=== PATIENT | male | born 1990 | race Caucasian/White ===

== ENCOUNTER 2018-08-13 23:15 | Inpatient (IN) | payer OTHER ==
[2018-08-13 23:45] VITALS: BMI 26.4
--- NOTE | 2018-08-14 01:23 | HP ---
COWS - Scale Resting Pulse: 0= [place] 80 or Below Sweatin=Flushed/Facial Moisture Restless Observation: 1= Difficult to Sit Still Pupil Size: 1= Pupils >than Normal Bone or Joint Aches: 4=Acute Joint/Muscle Pain Runny Nose/ Eye Tearin= Runny Nose/Eyes GI Upset > 30mins: 3= Vomiting/Diarrhea (vomiting 5, diarrhea x 1) Tremor Observation: 1= Tremor [place], Not Seen Yawning Observation: 0= None Anxiety or Irritability: 2=Irritable/Anxious Goose Flesh Skin: 0=Smooth Skin COWS Score: 16 CIWA Score - Admission Criteria OASAS Guidelines: Admission for Medically Managed Detox: Requires at least one of the followin. CIWA greater than 12 2. Seizures within the past 24 hours 3. Delirium tremens within the past 24 hours 4. Hallucinations within the past 24 hours 5. Acute intervention needed for co occurring medical disorder 6. Acute intervention needed for co occurring psychiatric disorder 7. Severe withdrawal that cannot be handled at a lower level of care (continued vomiting, continued diarrhea, abnormal vital signs) requiring intravenous medication and/or fluids 8. Admission [facility] Chief Complaint: Heroin withdrawal symptoms Allergies/Adverse Reactions: Allergies Allergy/AdvReac Type Severity Reaction Status Date / Time No Known Allergies Allergy Verified 08/13/18 23:38 History of Present Illness: 28 years old male with 2 years of heroin dependence is seeking admission. Patient reports last detox at [facility] and reports insignificant period of sobriety. He has past medical history of depression and denies suicidal ideation at this time. he states that he felt suicidal and went to [facility] where he was treated, observed for more that 12 hours, cleared and was picked up by Mr. Marino to detox here. Exam Limitations: No Limitations - Ebola screening Have you traveled outside of the country in the last 21 days: No Have you had contact with anyone from an Ebola affected area: No Have you been sick,other than usual withdrawal symptoms: No Do you have a fever: No - Review of Systems Constitutional: Chills EENT: reports: Nose Congestion Respiratory: reports: No Symptoms reported Cardiac: reports: No Symptoms Reported GI: reports: Poor Fluid Intake, Vomiting, Abdominal cramping : reports: No Symptoms Reported Musculoskeletal: reports: Back Pain Integumentary: reports: Flushing Neuro: reports: Headache, Tremors Endocrine: reports: No Symptoms Reported Hematology: reports: No Symptoms Reported Psychiatric: reports: Depressed Other Systems: Reviewed and Negative Patient History - Patient Medical History Hx Anemia: No Hx Asthma: No Hx Chronic Obstructive Pulmonary Disease (COPD): No Hx Cancer: No Hx Cardiac Disorders: No Hx Congestive Heart Failure: No Hx Hypertension: No Hx Hypercholesterolemia: No Hx Pacemaker: No HX Cerebrovascular Accident: No Hx Seizures: No Hx Dementia: No Hx Diabetes: No Hx Gastrointestinal Disorders: No Hx Liver Disease: No Hx Genitourinary Disorders: No Hx Sexually Transmitted Disorders: No Hx Renal Disease (ESRD): No Hx Thyroid Disease: No Hx Human Immunodeficiency Virus (HIV): No (negative 2019) Hx Hepatitis C: No Hx Depression: Yes (Not on medication) Hx Suicide Attempt: No (Reports suicide attempt. treated at [facility] , Observed ) - Patient Surgical History Past Surgical History: No - PPD History Previous Implant?: Yes Documented Results: Negative w/o proof Implanted On Prior [facility] Admission?: No PPD to be Administered?: Yes - Reproductive History Patient is a Female of Child Bearing Age (11 -55 yrs old): No (Male) - Smoking Cessation Smoking history: Current every day smoker Have you smoked in the past 12 months: Yes Aproximately how many cigarettes per day: 2 Hx Chewing Tobacco Use: No Initiated information on smoking cessation: Yes 'Breaking Loose' booklet given: 08/14/18 - Substance & Tx. History Hx Alcohol Use: No Hx Substance Use: Yes Substance Use Type: Heroin, Opiates Hx Substance Use Treatment: Yes (Amandeep Haywood) - Substances abused Cocaine Substance route: Injection Frequency: Daily Amount used: 1 GRAM Age of first use: 11 Date of last use: 08/13/18 Heroin Substance route: Injection Frequency: Daily Amount used: 1 BUNDLE Age of first use: 26 Date of last use: 08/13/18 Family Disease History - Family Disease History Family History: Denies Admission Physical Exam BHS - Vital Signs Vital Signs: Vital Signs - 24 hr 08/13/18 23:36 Temperature 99.3 F Pulse Rate 69 Respiratory 18 Rate Blood Pressure 101/56 L - Physical General Appearance: Yes: Moderate Distress, Tremorous, Irritable, Anxious HEENTM: Yes: Nasal Congestion Respiratory: Yes: Normal Breath Sounds, No Accessory Muscle Use Neck: Yes: Supple Breast: Yes: Breast Exam Deferred Cardiology: Yes: Regular Rhythm, Regular Rate Abdominal: Yes: Normal Bowel Sounds, Soft Genitourinary: Yes: Within Normal Limits Back: Yes: Normal Inspection Musculoskeletal: Yes: Within Normal Limits Extremities: Yes: Tremors Neurological: Yes: Alert, Normal Mood/Affect Integumentary: Yes: Warm Lymphatic: Yes: Within Normal Limits - Diagnostic (1) Opioid dependence with withdrawal Current Visit: Yes Status: Acute (2) Depression Current Visit: Yes Status: Chronic Qualifiers: Depression Type: unspecified Qualified Code(s): F32.9 - Major depressive disorder, single episode, unspecified (3) Nicotine dependence Current Visit: Yes Status: Chronic Qualifiers: Nicotine product type: cigarettes Substance use status: uncomplicated Qualified Code(s): F17.210 - Nicotine dependence, cigarettes, uncomplicated Cleared for Admission S - Detox or Rehab [facility] Level of Care: Medically Managed Detox Regimen/Protocol: Methadone Breathalyzer - Breathalyzer Breathalyzer: 0 Urine Drug Screen - Test Device Lot number: [id number] Expiration date: 03/20/20 - Control Is test valid?: Yes - Results Drug screen NEGATIVE: No Urine drug screen results: FRITZ-Cocaine, FEN-Fentanyl, MOP-Opiates Inpatient Rehab Admission - Rehab Decision to Admit Inpatient rehab admission?: No
[2018-08-14] MEDS ORDERED: MAGNESIUM HYDROX 2400MG/30ML ORAL SUSPENSION 30 ML CUP PO PRN (01:42)
[2018-08-14] MEDS ORDERED: MELATONIN 5 MG TABLETS PO PRN (01:42)
[2018-08-14] MEDS ORDERED: IBUPROFEN 400 MG TABLET (FP) PO PRN (01:42)
[2018-08-14] MEDS ORDERED: MENTHOL/PHENOL 1 EACH UD MM PRN (01:42)
[2018-08-14] MEDS ORDERED: MAGNESIUM CITRATE 300 ML BOTTLE PO PRN (01:42)
[2018-08-14] MEDS ORDERED: MAG HYDROX/AL HYDROX/SIMETH 30 ML UNIT-DOSE CUP PO PRN (01:42)
[2018-08-14] MEDS ORDERED: METHOCARBAMOL 500 MG TABLET PO PRN (01:42)
[2018-08-14] MEDS ORDERED: ACETAMINOPHEN 325 MG TABLET (FP) PO PRN ×2 (01:42)
[2018-08-14] MEDS ORDERED: BISMUTH SUBSALICYLATE 524 MG/30 ML UD PO PRN (01:42)
[2018-08-14] MEDS ORDERED: METHADONE HCL 10 MG TABLET PO ONE (05:00)
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
[2018-08-14] MEDS: PRENATAL VITAMINS W/ FOLIC ACID TABLET (FP) PO SCH (10:15)
--- NOTE | 2018-08-14 11:04 | PN ---
BHS COWS - Scale Resting Pulse: 0= [place] 80 or Below Sweatin=Flushed/Facial Moisture Restless Observation: 1= Difficult to Sit Still Pupil Size: 0= Normal to Room Light Bone or Joint Aches: 2= Severe Diffuse Aches Runny Nose/ Eye Tearin= Runny Nose/Eyes GI Upset > 30mins: 1= Stomach Cramp Tremor Observation of Outstretched Hands: 2= Slight Tremor Visible Yawning Observation: 2= >3x During Session Anxiety or Irritability: 2=Irritable/Anxious Goose Flesh Skin: 3=Piloerection COWS Score: 17 BHS Progress Note (SOAP) Subjective: chills sweats shakes interrupted sleep body aches irritable agitation Objective: 08/14/18 11:03 Vital Signs Temperature 98.0 F 08/14/18 09:15 Pulse Rate 56 L 08/14/18 09:15 Respiratory Rate 18 08/14/18 09:15 Blood Pressure 103/66 08/14/18 09:15 O2 Sat by Pulse Oximetry (%) labs pending [id number] ambulating no acute distress Assessment: 08/14/18 11:03 withdrawal sx Plan: continue detox increase fluids labs pending
--- NOTE | 2018-08-14 11:30 | EKG ---
Test Reason : Blood Pressure : / mmHG Vent. Rate : 058 BPM Atrial Rate : 058 BPM P-R Int : 132 ms QRS Dur : 092 ms QT Int : 506 ms P-R-T Axes : 000 072 021 degrees QTc Int : 496 ms ECTOPIC ATRIAL RHYTHM PROLONGED QT NONSPECIFIC T WAVE ABNORMALITY ABNORMAL ECG NO PREVIOUS ECGS AVAILABLE Confirmed by JESSICA SIMS MD ([id number]) on 08/14/2018 11:30:08 AM Referred By: Confirmed By:JESSICA SIMS MD
[2018-08-14] MEDS: THIAMINE HCL 100 MG TABLET (FP) PO SCH (22:45)
[2018-08-14] MEDS: hydrOXYzine PAMOATE 25 MG CAPSULE (FP) PO PRN (22:46)
[2018-08-14] MEDS ORDERED: METHADONE HCL 10 MG TABLET (FOR DETOX USE ONLY) PO ONE (23:00)
[2018-08-15] MEDS ORDERED: METHADONE HCL 10 MG TABLET (FOR DETOX USE ONLY) PO ONE (10:00)
[2018-08-15 10:32] LABS: HEMATOCRIT 43.7 % (35.4-49); HEMOGLOBIN 14.7 GM/dL (11.7-16.9); MCH 28.7 pg (25.7-33.7); MCHC 33.7 g/dl (32.0-35.9); MEAN CELL VOLUME 85.2 fl (80-96); PLATELET COUNT 317 K/MM3 (134-434); RBC 5.13 M/mm3 (4.00-5.60); RDW 14.4 % (11.9-15.9); WHITE BLOOD COUNT 5.3 K/mm3 (4.0-10.0)
[2018-08-15] MEDS: PRENATAL VITAMINS W/ FOLIC ACID TABLET (FP) PO SCH (10:58)
[2018-08-15] MEDS: hydrOXYzine PAMOATE 25 MG CAPSULE (FP) PO PRN (10:58)
[2018-08-15] MEDS: diazePAM 5 MG TABLET PO PRN (10:58)
[2018-08-15 11:02] LABS: ALBUMIN 3.7 g/dl (3.4-5.0); ALK PHOS 89 U/L (45-117); ANION GAP 8 MMOL/L (8-16); BILIRUBIN,TOTAL 1.4 mg/dL (0.2-1); BLOOD UREA NITROGEN 12 mg/dL (7-18); CALCIUM 9.3 mg/dL (8.5-10.1); CHLORIDE 102 mmol/L (98-107); CO2 28 mmol/L (21-32); CREATININE 0.9 mg/dL (0.55-1.3); GLUCOSE,RANDOM 91 mg/dL (74-106); POTASSIUM 4.2 mmol/L (3.5-5.1); SGOT/AST 44 U/L (15-37); SGPT/ALT 105 U/L (13-61); SODIUM 138 mmol/L (136-145); TOT PROT 7.6 g/dl (6.4-8.2)
[2018-08-15 12:14] LABS: RPR REACTIVE 1:4 (NONREACTIVE)
--- NOTE | 2018-08-15 13:22 | PN ---
S COWS - Scale Resting Pulse: 1= [place] 81-100 Sweatin=Flushed/Facial Moisture Restless Observation: 1= Difficult to Sit Still Pupil Size: 0= Normal to Room Light Bone or Joint Aches: 2= Severe Diffuse Aches Runny Nose/ Eye Tearin= Nasal Congestion GI Upset > 30mins: 0= None Tremor Observation of Outstretched Hands: 2= Slight Tremor Visible Yawning Observation: 2= >3x During Session Anxiety or Irritability: 2=Irritable/Anxious Goose Flesh Skin: 3=Piloerection COWS Score: 16 BHS Progress Note (SOAP) Subjective: irritable agitation sweats shakes interrupted sleep Objective: 08/15/18 13:21 Vital Signs Temperature 98.2 F 08/15/18 09:45 Pulse Rate 56 L 08/15/18 09:45 Respiratory Rate 16 08/15/18 09:45 Blood Pressure 113/57 L 08/15/18 09:45 O2 Sat by Pulse Oximetry (%) Laboratory Tests 08/15/18 08/15/18 08/15/18 05:30 05:30 05:30 WBC 5.3 RBC 5.13 Hgb 14.7 Hct 43.7 MCV 85.2 MCH 28.7 MCHC 33.7 RDW 14.4 Plt Count 317 MPV 8.0 Sodium 138 Potassium 4.2 Chloride 102 Carbon Dioxide 28 Anion Gap 8 BUN 12 Creatinine 0.9 Creat Clearance w eGFR 99.77 Random Glucose 91 Calcium 9.3 Total Bilirubin 1.4 H AST 44 H ALT 105 H Alkaline Phosphatase 89 Total Protein 7.6 Albumin 3.7 RPR Titer Reactive 1:4 H labs noted pt was made aware of reactive RPR 1:4 pt states he was treated for syphilis and received 3 treatments Assessment: 08/15/18 13:22 withdrawal sx Plan: continue detox increase fluids
[2018-08-15 14:38] LABS: TREPONEMA ANTIBODY REACTIVE (NONREACTIVE)
[2018-08-15] MEDS: THIAMINE HCL 100 MG TABLET (FP) PO SCH (23:57)
[2018-08-16] MEDS ORDERED: METHADONE HCL 10 MG TABLET (FOR DETOX USE ONLY) PO ONE (10:00)
--- NOTE | 2018-08-16 11:31 | PN ---
BHS COWS - Scale Resting Pulse: 0= [place] 80 or Below Sweatin=Flushed/Facial Moisture Restless Observation: 1= Difficult to Sit Still Pupil Size: 0= Normal to Room Light Bone or Joint Aches: 1= Mild Discomfort Runny Nose/ Eye Tearin= None GI Upset > 30mins: 0= None Tremor Observation of Outstretched Hands: 0= None Yawning Observation: 1= 1-2x During Session Anxiety or Irritability: 1=Feels Anxious/Irritable Goose Flesh Skin: 0=Smooth Skin COWS Score: 6 BHS Progress Note (SOAP) Subjective: patient c/o sleep disturbance, chills, anxiety Objective: 08/16/18 11:31 Laboratory Tests 08/15/18 08/15/18 08/15/18 05:30 05:30 05:30 WBC 5.3 RBC 5.13 Hgb 14.7 Hct 43.7 MCV 85.2 MCH 28.7 MCHC 33.7 RDW 14.4 Plt Count 317 MPV 8.0 Sodium 138 Potassium 4.2 Chloride 102 Carbon Dioxide 28 Anion Gap 8 BUN 12 Creatinine 0.9 Creat Clearance w eGFR 99.77 Random Glucose 91 Calcium 9.3 Total Bilirubin 1.4 H AST 44 H ALT 105 H Alkaline Phosphatase 89 Total Protein 7.6 Albumin 3.7 RPR Titer Reactive 1:4 H T.pallidum Ab (MHA) Reactive Vital Signs Temperature 97.5 F L 08/16/18 09:36 Pulse Rate 66 08/16/18 09:36 Respiratory Rate 18 08/16/18 09:36 Blood Pressure 100/59 L 08/16/18 09:36 O2 Sat by Pulse Oximetry (%) pe: alert and oriented x 3 skin warm, +flushing ext full rom, amb ad neyda anxious Assessment: 08/16/18 11:33 withdrawal sx Plan: continue detox encourage fluids monitor
[2018-08-16] MEDS: diazePAM 5 MG TABLET PO PRN (12:01)
[2018-08-16] MEDS: PRENATAL VITAMINS W/ FOLIC ACID TABLET (FP) PO SCH (12:02)
[2018-08-16] MEDS: hydrOXYzine PAMOATE 25 MG CAPSULE (FP) PO PRN (12:02)
[2018-08-16] MEDS: THIAMINE HCL 100 MG TABLET (FP) PO SCH (23:58)
--- NOTE | 2018-08-17 07:24 | EKG ---
Test Reason : Blood Pressure : / mmHG Vent. Rate : 060 BPM Atrial Rate : 060 BPM P-R Int : 138 ms QRS Dur : 086 ms QT Int : 462 ms P-R-T Axes : 040 075 023 degrees QTc Int : 462 ms NORMAL SINUS RHYTHM NORMAL ECG WHEN COMPARED WITH ECG OF 14-AUG-2018 00:53, NONSPECIFIC T WAVE ABNORMALITY NO LONGER EVIDENT IN LATERAL LEADS Confirmed by ROHAN RODRIGUEZ MD ([id number]) on 08/15/2018 3:22:42 PM Also confirmed by ROHAN RODRIGUEZ MD ([id number]), video editor MASHA KC ([id number]) on 08/17/2018 7:24:40 AM Referred By: Confirmed By:ROHAN RODRIGUEZ MD
[2018-08-17] MEDS ORDERED: METHADONE HCL 10 MG TABLET (FOR DETOX USE ONLY) PO ONE (10:00)
[2018-08-17 10:14] LABS: ALBUMIN 3.5 g/dl (3.4-5.0); BILIRUBIN,DIRECT 0.2 mg/dL (0.0-0.2); TOT PROT 7.5 g/dl (6.4-8.2)
[2018-08-17] MEDS: PRENATAL VITAMINS W/ FOLIC ACID TABLET (FP) PO SCH (10:22)
[2018-08-17] MEDS: diazePAM 5 MG TABLET PO PRN (10:25)
--- NOTE | 2018-08-17 16:50 | PN ---
S COWS - Scale Resting Pulse: 0= [place] 80 or Below Sweatin= No chills or Flushing Restless Observation: 0= Sits Still Pupil Size: 0= Normal to Room Light Bone or Joint Aches: 1= Mild Discomfort Runny Nose/ Eye Tearin= Runny Nose/Eyes GI Upset > 30mins: 2= Nausea/Diarrhea Tremor Observation of Outstretched Hands: 2= Slight Tremor Visible Yawning Observation: 2= >3x During Session Anxiety or Irritability: 2=Irritable/Anxious Goose Flesh Skin: 0=Smooth Skin COWS Score: 11 S Progress Note (SOAP) Subjective: Tremors, Watery Eyes, Constipation, Nausea. Objective: PATIENT A & O X 3. IN NO ACUTE DISTRESS. 08/17/18 16:45 Vital Signs Temperature 98.6 F 08/17/18 13:27 Pulse Rate 77 08/17/18 13:27 Respiratory Rate 18 08/17/18 13:27 Blood Pressure 123/74 08/17/18 13:27 O2 Sat by Pulse Oximetry (%) Laboratory Tests 08/15/18 08/15/18 08/15/18 05:30 05:30 05:30 WBC 5.3 RBC 5.13 Hgb 14.7 Hct 43.7 MCV 85.2 MCH 28.7 MCHC 33.7 RDW 14.4 Plt Count 317 MPV 8.0 Sodium 138 Potassium 4.2 Chloride 102 Carbon Dioxide 28 Anion Gap 8 BUN 12 Creatinine 0.9 Creat Clearance w eGFR 99.77 Random Glucose 91 Calcium 9.3 Total Bilirubin 1.4 H Direct Bilirubin AST 44 H ALT 105 H Alkaline Phosphatase 89 Total Protein 7.6 Albumin 3.7 RPR Titer Reactive 1:4 H T.pallidum Ab (MHA) Reactive 08/17/18 07:00 WBC RBC Hgb Hct MCV MCH MCHC RDW Plt Count MPV Sodium Potassium Chloride Carbon Dioxide Anion Gap BUN Creatinine Creat Clearance w eGFR Random Glucose Calcium Total Bilirubin 1.0 Direct Bilirubin 0.2 AST 32 ALT 86 H Alkaline Phosphatase 86 Total Protein 7.5 Albumin 3.5 RPR Titer T.pallidum Ab (MHA) LABS NOTED. RESULTS OF HFP NOTED. IMPROVEMENT NOTED IN ASLT, AST, AND IN TOTAL BILIRUBIN LEVELS. PATIENT REPORTS THAT HE COMPLETED A FULL COURSE OF ANTIBIOTIC TREATMENT FOR SYPHILIS IN THE PAST. 08/17/18 16:46 Assessment: 08/17/18 16:48 WITHDRAWAL SYMPTOMS. ELEVATED ALT LEVEL. REACTIVE RPR RESULT. 08/17/18 16:50 Plan: CONTINUE DETOX. INCREASE DAILY PO FLUID / WATER INTAKE. PRN MOM FOR CONSTIPATION.
[2018-08-17] MEDS: THIAMINE HCL 100 MG TABLET (FP) PO SCH (22:27)
[2018-08-18] MEDS ORDERED: METHADONE HCL 5 MG TABLET (FOR DETOX USE ONLY) PO ONE (06:00)
[2018-08-18] MEDS: diazePAM 5 MG TABLET PO PRN (06:17)
[2018-08-18 07:10] VITALS: BP 119/63; PULSE 59; TEMP 98.1
--- NOTE | 2018-08-18 15:26 | DS ---
[facility] Detox Discharge Summary Admission Date: 08/14/18 Discharge Date: 08/18/18 - History Present History: Cocaine Dependence, Opioid Dependence Additional Comments: PATIENT ELECTING TO GO HOME. PATIENT ADVISED TO CONSIDER LOCAL 12-STEP / NA OUTPATIENT SUPPORT GROUP IN HIS AREA. PATIENT ADVISED TO FOLLOW-UP WITH TELEPHONE SUPERVISOR WHEN POSSIBLE AFTER DISCHARGE FROM DETOX UNIT FOR GENERAL MEDICAL ASSESSMENT AND FOR ELEVATED AST AND ALT LEVELS NOTED ON LABORATORY ASSESSMENT WHILE ADMITTED FOR DETOX. PATIENT VERBALIZED UNDERSTANDING OF ALL RECOMMENDATIONS PRESENTED TO HIM PRIOR TO DISCHARGE FROM DETOX UNIT. COPIES OF RESULTS OF ALL LABS DRAWN WHILE ADMITTED FOR DETOX GIVEN TO PATIENT AT TIME OF DISCHARGE FROM DETOX UNIT. PATIENT WAS DISCHARGED FROM DETOX UNIT IN STABLE MEDICAL CONDITION. Pertinent Past History: Depression, Nicotine Dependence, Elevated Liver Enzymes, History Of Syphilis ( treated). - Physical Exam Results Vital Signs: Vital Signs Temperature 98.1 F 08/18/18 06:00 Pulse Rate 59 L 08/18/18 06:00 Respiratory Rate 18 08/18/18 06:00 Blood Pressure 119/63 08/18/18 06:00 O2 Sat by Pulse Oximetry (%) Pertinent Admission Physical Exam Findings: WITHDRAWAL SYMPTOMS. Laboratory Tests 08/15/18 08/15/18 08/15/18 05:30 05:30 05:30 WBC 5.3 RBC 5.13 Hgb 14.7 Hct 43.7 MCV 85.2 MCH 28.7 MCHC 33.7 RDW 14.4 Plt Count 317 MPV 8.0 Sodium 138 Potassium 4.2 Chloride 102 Carbon Dioxide 28 Anion Gap 8 BUN 12 Creatinine 0.9 Creat Clearance w eGFR 99.77 Random Glucose 91 Calcium 9.3 Total Bilirubin 1.4 H Direct Bilirubin AST 44 H ALT 105 H Alkaline Phosphatase 89 Total Protein 7.6 Albumin 3.7 RPR Titer Reactive 1:4 H T.pallidum Ab (MHA) Reactive 08/17/18 07:00 WBC RBC Hgb Hct MCV MCH MCHC RDW Plt Count MPV Sodium Potassium Chloride Carbon Dioxide Anion Gap BUN Creatinine Creat Clearance w eGFR Random Glucose Calcium Total Bilirubin 1.0 Direct Bilirubin 0.2 AST 32 ALT 86 H Alkaline Phosphatase 86 Total Protein 7.5 Albumin 3.5 RPR Titer T.pallidum Ab (MHA) LABS NOTED. - Treatment Hospital Course: Detox Protocol Followed, Detoxed Safely, Responded well, Discharged Condition Good Patient has Accepted a Rehab Referral to: PT. GOING HOME; ADVISED TO CONSIDER LOCAL 12-STEP/NA OP PROGRAM. - Medication Discharge Medications: Ambulatory Orders NK [No Known Home Medication] 08/13/18 - Diagnosis (1) Cocaine dependence Status: Acute Qualifiers: Substance use status: in withdrawal Qualified Code(s): F14.23 - Cocaine dependence with withdrawal (2) Elevated alanine aminotransferase (ALT) level Status: Acute (3) Opioid dependence with withdrawal Status: Acute (4) Positive RPR test Status: Chronic (5) Substance induced mood disorder Status: Acute (6) Depression Status: Chronic Qualifiers: Depression Type: unspecified Qualified Code(s): F32.9 - Major depressive disorder, single episode, unspecified (7) Nicotine dependence Status: Chronic Qualifiers: Nicotine product type: cigarettes Substance use status: uncomplicated Qualified Code(s): F17.210 - Nicotine dependence, cigarettes, uncomplicated - AMA Did Patient Leave Against Medical Advice: No
== END 2018-08-18 09:05 | disposition home or self-care (01) | DRG 773 ==
LOC: YASAS 23:15 → Y6N 08-14 01:13
PROVIDERS: ADMIT Surgery; ATTEND Surgery
PROC: HZ2ZZZZ Detoxification Services for Substance Abuse Treatment (ICD-10-PCS; principal; 2018-08-14)
DX: F11.23 Opioid dependence with withdrawal (principal); F14.20 Cocaine dependence, uncomplicated; F17.210 Nicotine dependence, cigarettes, uncomplicated; F19.24 Other psychoactive substance dependence with psychoactive substance-induced mood disorder; F32.9 Major depressive disorder, single episode, unspecified; R94.5 Abnormal results of liver function studies; Z86.19 Personal history of other infectious and parasitic diseases
CPT/HCPCS: 36415; 80053; 80076; 85027; 86593; 86780; 93005; 93010

== ENCOUNTER 2018-10-20 10:00 | Inpatient (IN) | payer OTHER ==
[2018-10-20 11:28] VITALS: BMI 24.7
--- NOTE | 2018-10-20 13:25 | HP ---
COWS - Scale Resting Pulse: 0= [place] 80 or Below Sweatin=Flushed/Facial Moisture Restless Observation: 1= Difficult to Sit Still Pupil Size: 0= Normal to Room Light Bone or Joint Aches: 2= Severe Diffuse Aches Runny Nose/ Eye Tearin= Runny Nose/Eyes GI Upset > 30mins: 3= Vomiting/Diarrhea Tremor Observation: 1= Tremor [place], Not Seen Yawning Observation: 1= 1-2x During Session Anxiety or Irritability: 2=Irritable/Anxious Goose Flesh Skin: 3=Piloerection COWS Score: 17 CIWA Score - Admission Criteria OASAS Guidelines: Admission for Medically Managed Detox: Requires at least one of the followin. CIWA greater than 12 2. Seizures within the past 24 hours 3. Delirium tremens within the past 24 hours 4. Hallucinations within the past 24 hours 5. Acute intervention needed for co occurring medical disorder 6. Acute intervention needed for co occurring psychiatric disorder 7. Severe withdrawal that cannot be handled at a lower level of care (continued vomiting, continued diarrhea, abnormal vital signs) requiring intravenous medication and/or fluids 8. Admission ROS [facility] Chief Complaint: 28 y/o M PMH depression who presents for heroin detox. Per pt, last use was last night - 10 bags worth. IVDA into antecubital fossa b/l. Used to use intranasally previously. Uses a bundle every day. OD on fentanyl a year ago. Was at [facility] for heroin 6 mo ago and at [facility] in July 2018. Longest sobriety 2-3 months. Uses cocaine 2-3x a week 1/2 gram at a time; IVDA. Smokes cigarettes 3-4 cigs/day x 10 yrs. When younger used to drink socially. Lost his brother to heroin OD, was younger than him; 26 yrs old. PMH: depression PsxH: none meds: none allergies: NKDA FH: none SH: homeless. has been living with relatives. states that they do not use but know that he does drug use as above Allergies/Adverse Reactions: Allergies Allergy/AdvReac Type Severity Reaction Status Date / Time No Known Allergies Allergy Verified 10/20/18 11:20 Exam Limitations: No Limitations - Ebola screening Have you traveled outside of the country in the last 21 days: No Have you had contact with anyone from an Ebola affected area: No - Review of Systems Constitutional: Chills, Diaphoresis, Fever, Unintentional Wgt. Loss EENT: reports: No Symptoms Reported Respiratory: reports: No Symptoms reported GI: reports: Nausea, Vomiting : reports: No Symptoms Reported Musculoskeletal: reports: Muscle Pain, Muscle Weakness Integumentary: reports: No Symptoms Reported Neuro: reports: No Symptoms reported Endocrine: reports: No Symptoms Reported Hematology: reports: No Symptoms Reported Psychiatric: reports: Orientated x3 Patient History - Patient Medical History Hx Anemia: No Hx Asthma: No Hx Chronic Obstructive Pulmonary Disease (COPD): No Hx Cancer: No Hx Cardiac Disorders: No Hx Congestive Heart Failure: No Hx Hypertension: No Hx Hypercholesterolemia: No Hx Pacemaker: No HX Cerebrovascular Accident: No Hx Seizures: No Hx Dementia: No Hx Diabetes: No Hx Gastrointestinal Disorders: No Hx Liver Disease: No Hx Genitourinary Disorders: No Hx Sexually Transmitted Disorders: No Hx Renal Disease (ESRD): No Hx Thyroid Disease: No Hx Human Immunodeficiency Virus (HIV): No (negative 2018) Hx Hepatitis C: No Hx Depression: No Hx Suicide Attempt: Yes (08/13/2018) Hx Schizophrenia: No - Patient Surgical History Past Surgical History: No Hx Neurologic Surgery: No Hx Cataract Extraction: No Hx Cardiac Surgery: No Hx Lung Surgery: No Hx Breast Surgery: No Hx Breast Biopsy: No Hx Abdominal Surgery: No Hx Appendectomy: No Hx Cholecystectomy: No Hx Genitourinary Surgery: No Hx Section: No Hx Orthopedic Surgery: No Anesthesia Reaction: No - PPD History Documented Results: Negative w/o proof Date: 08/16/18 PPD to be Administered?: No - Reproductive History Patient is a Female of Child Bearing Age (11 -55 yrs old): No - Smoking Cessation Smoking history: Current every day smoker Have you smoked in the past 12 months: Yes Aproximately how many cigarettes per day: 2 Hx Chewing Tobacco Use: No Initiated information on smoking cessation: Yes 'Breaking Loose' booklet given: 10/20/18 - Substance & Tx. History Hx Alcohol Use: Yes Substance Use Type: Cocaine, Heroin Hx Substance Use Treatment: Yes ([facility] 6 months ago, [facility] previously detox) - Substances abused Cocaine Substance route: Injection Frequency: 3-6 times per week Amount used: 1/2 GRAM Age of first use: 19 Date of last use: 10/18/18 Heroin Substance route: Injection Frequency: Daily Amount used: 10 BAGS/DAY Age of first use: 26 Date of last use: 10/19/18 Other Amount used: 300MG Age of first use: 27 Date of last use: 10/18/18 Family Disease History - Family Disease History Family History: Denies Admission Physical Exam [facility] - Vital Signs Vital Signs: Vital Signs - 24 hr 10/20/18 11:14 Temperature 97 F L Pulse Rate 55 L Respiratory 17 Rate Blood Pressure 105/64 - Physical General Appearance: Yes: Within Normal Limits, Alcohol on Breath HEENTM: Yes: Normocephalic Respiratory: Yes: Within Normal Limits, Normal Breath Sounds, No Accessory Muscle Use Neck: Yes: Within Normal Limits Breast: Yes: Breast Exam Deferred Cardiology: Yes: Regular Rate, S1, S2 Abdominal: Yes: Within Normal Limits, Non Tender Genitourinary: Yes: Within Normal Limits Back: Yes: Within Normal Limits Musculoskeletal: Yes: Within Normal Limits Extremities: Yes: Other (+track pettit: antecubital fossa b/l) 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 Integumentary: Yes: Dry, Warm Lymphatic: Yes: Within Normal Limits - Diagnostic (1) Cocaine dependence Current Visit: No Status: Acute Qualifiers: Substance use status: in withdrawal Qualified Code(s): F14.23 - Cocaine dependence with withdrawal (2) Opioid dependence with withdrawal Current Visit: No Status: Acute (3) Depression Current Visit: No Status: Chronic Qualifiers: Depression Type: unspecified Qualified Code(s): F32.9 - Major depressive disorder, single episode, unspecified (4) Nicotine dependence Current Visit: No Status: Chronic Qualifiers: Nicotine product type: cigarettes Substance use status: uncomplicated Qualified Code(s): F17.210 - Nicotine dependence, cigarettes, uncomplicated Cleared for Admission [facility] - Detox or Rehab [facility] Level of Care: Medically Managed Detox Regimen/Protocol: Methadone Breathalyzer - Breathalyzer Breathalyzer: 0 Urine Drug Screen - Test Device Lot number: [id number] Expiration date: 06/18/20 - Control Is test valid?: Yes - Results Drug screen NEGATIVE: No Urine drug screen results: FRITZ-Cocaine, FEN-Fentanyl, MOP-Opiates, MTD-Methadone Inpatient Rehab Admission - Rehab Decision to Admit Inpatient rehab admission?: No
[2018-10-20] MEDS ORDERED: MAGNESIUM HYDROX 2400MG/30ML ORAL SUSPENSION 30 ML CUP PO PRN (13:42)
[2018-10-20] MEDS ORDERED: MENTHOL/PHENOL 1 EACH UD MM PRN (13:42)
[2018-10-20] MEDS ORDERED: IBUPROFEN 400 MG TABLET (FP) PO PRN (13:42)
[2018-10-20] MEDS ORDERED: ACETAMINOPHEN 325 MG TABLET (FP) PO PRN ×2 (13:42)
[2018-10-20] MEDS ORDERED: hydrOXYzine PAMOATE 25 MG CAPSULE (FP) PO PRN (13:42)
[2018-10-20] MEDS ORDERED: MAGNESIUM CITRATE 300 ML BOTTLE PO PRN (13:42)
[2018-10-20] MEDS ORDERED: cloNIDine HCL 0.1 MG TABLET PO PRN (13:42)
[2018-10-20] MEDS ORDERED: BISMUTH SUBSALICYLATE 262 MG/15 ML BTL PO PRN (13:42)
[2018-10-20] MEDS ORDERED: MAG HYDROX/AL HYDROX/SIMETH 30 ML UNIT-DOSE CUP PO PRN (13:42)
--- NOTE | 2018-10-20 13:59 | PN ---
S Progress Note Note: 28 y.o. male w/ IVDU opiates , relapse after of his brother ( cocaine OD ) , requesting detox . Denies anscess , unsure if OD in the past , needles from pharmacy , denies sharing, denies re-using, current symptoms as described . A?P : opioid dependence, methadone taper . pt agreeable w/ POC
[2018-10-20] MEDS ORDERED: METHADONE HCL 10 MG TABLET (FOR DETOX USE ONLY) PO ONE (14:45)
[2018-10-20 17:41] LABS: HEMATOCRIT 35.8 % (35.4-49); MCH 28.2 pg (25.7-33.7); MCHC 33.5 g/dl (32.0-35.9); MEAN CELL VOLUME 84.2 fl (80-96); MEAN PLT VOLUME 8.3 fl (7.5-11.1); PLATELET COUNT 258 K/MM3 (134-434); RBC 4.26 M/mm3 (4.00-5.60); RDW 14.8 % (11.9-15.9); WHITE BLOOD COUNT 3.4 K/mm3 (4.0-10.0)
[2018-10-20 17:54] LABS: ALBUMIN 3.2 g/dl (3.4-5.0); BILIRUBIN,TOTAL 0.7 mg/dL (0.2-1); BLOOD UREA NITROGEN 16.8 mg/dL (7-18); CALCIUM 8.4 mg/dL (8.5-10.1); CREATININE 0.9 mg/dL (0.55-1.3); POTASSIUM 4.4 mmol/L (3.5-5.1); TOT PROT 6.6 g/dl (6.4-8.2)
[2018-10-20] MEDS: MELATONIN 5 MG TABLETS PO PRN (22:37)
[2018-10-20] MEDS: THIAMINE HCL 100 MG TABLET (FP) PO SCH (22:37)
[2018-10-20] MEDS: METHOCARBAMOL 500 MG TABLET PO PRN (22:38)
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
[2018-10-21 08:55] LABS: RPR REACTIVE 1:4 (NONREACTIVE)
[2018-10-21 08:58] LABS: TREPONEMA ANTIBODY PREVIOUSLY REACTIVE (NONREACTIVE)
[2018-10-21] MEDS ORDERED: METHADONE HCL 5 MG TABLET (FOR DETOX USE ONLY) PO ONE (10:00)
[2018-10-21] MEDS: PRENATAL VITAMINS W/ FOLIC ACID TABLET (FP) PO SCH (10:08)
--- NOTE | 2018-10-21 13:28 | PN ---
[facility] CIWA - CIWA Score Nausea/Vomitin-No Nausea/No Vomiting Muscle Tremors: 1-None Visible, but [place] Anxiety: 3 Agitation: 2 Paroxysmal Sweats: 1-Minimal Palms Moist Orientation: 0-Oriented Tacttile Disturbances: 0-None Auditory Disturbances: 0-None Visual Disturbances: 0-None Headache: 0-None Present CIWA-Ar Total Score: 7 S COWS - Scale Resting Pulse: 0= [place] 80 or Below Sweatin= Chills/Flushing Restless Observation: 0= Sits Still Pupil Size: 0= Normal to Room Light Bone or Joint Aches: 4=Acute Joint/Muscle Pain Runny Nose/ Eye Tearin= None GI Upset > 30mins: 0= None Tremor Observation of Outstretched Hands: 1= Tremor [place], Not Seen Yawning Observation: 1= 1-2x During Session Anxiety or Irritability: 2=Irritable/Anxious Goose Flesh Skin: 0=Smooth Skin COWS Score: 9 S Progress Note (SOAP) Subjective: ANXIETY, SWEATS, BODY ACHE,INTERMITTENT SLEEP. Objective: 10/21/18 13:26 Vital Signs 10/21/18 10/21/18 10/21/18 08:06 09:29 13:13 Temperature 98.4 F 98.7 F 96.4 F L Pulse Rate 46 L 55 L 53 L Respiratory 18 16 18 Rate Blood Pressure 109/64 117/66 95/49 L Laboratory Tests 10/20/18 10/20/18 10/20/18 14:40 14:40 14:40 WBC 3.4 L RBC 4.26 Hgb 12.0 Hct 35.8 D MCV 84.2 MCH 28.2 MCHC 33.5 RDW 14.8 Plt Count 258 MPV 8.3 Sodium 137 Potassium 4.4 Chloride 104 Carbon Dioxide 30 Anion Gap 3 L BUN 16.8 Creatinine 0.9 Est GFR (CKD-EPI)AfAm 133.30 Est GFR (CKD-EPI)NonAf 115.01 Random Glucose 79 Calcium 8.4 L Total Bilirubin 0.7 AST 34 ALT 67 H Alkaline Phosphatase 67 Total Protein 6.6 Albumin 3.2 L RPR Titer Reactive 1:4 H T.pallidum Ab (MHA) Previously reactive RPR WAS 1:4 ON 08/15/18 AND REPORTED TO STAFF HE RECEIVED 3 TREATMENTS. SEROLOGY UNCHANGED FROM THE PREVIOUS. Assessment: 10/21/18 13:26 WITHDRAWAL SX Plan: CONTINUE DETOX
[2018-10-21] MEDS: METHOCARBAMOL 500 MG TABLET PO PRN (22:13)
[2018-10-21] MEDS: MELATONIN 5 MG TABLETS PO PRN (22:13)
[2018-10-21] MEDS: THIAMINE HCL 100 MG TABLET (FP) PO SCH (22:13)
[2018-10-22] MEDS ORDERED: METHADONE HCL 10 MG TABLET (FOR DETOX USE ONLY) PO ONE (10:00)
--- NOTE | 2018-10-22 10:01 | PN ---
[facility] COWS - Scale Resting Pulse: 0= [place] 80 or Below Sweatin= Chills/Flushing Restless Observation: 1= Difficult to Sit Still Pupil Size: 0= Normal to Room Light Bone or Joint Aches: 0= None Runny Nose/ Eye Tearin= None GI Upset > 30mins: 0= None Tremor Observation of Outstretched Hands: 2= Slight Tremor Visible Yawning Observation: 1= 1-2x During Session Anxiety or Irritability: 2=Irritable/Anxious Goose Flesh Skin: 0=Smooth Skin COWS Score: 7 [facility] Progress Note (SOAP) Subjective: c/o sweats, anxiety and irritability Objective: 10/22/18 10:00 Vital Signs 10/22/18 10/22/18 10/22/18 03:30 06:00 09:21 Temperature 97.7 F 97.0 F L Pulse Rate 46 L 57 L Respiratory 18 18 18 Rate Blood Pressure 107/58 L 110/57 L Lab Results WBC 3.4 K/mm3 (4.0-10.0) L 10/20/18 14:40 RBC 4.26 M/mm3 (4.00-5.60) 10/20/18 14:40 Hgb 12.0 GM/dL (11.7-16.9) 10/20/18 14:40 Hct 35.8 % (35.4-49) D 10/20/18 14:40 MCV 84.2 fl (80-96) 10/20/18 14:40 MCHC 33.5 g/dl (32.0-35.9) 10/20/18 14:40 RDW 14.8 % (11.9-15.9) 10/20/18 14:40 Plt Count 258 K/MM3 (134-434) 10/20/18 14:40 Sodium 137 mmol/L (136-145) 10/20/18 14:40 Potassium 4.4 mmol/L (3.5-5.1) 10/20/18 14:40 Chloride 104 mmol/L (98-107) 10/20/18 14:40 Carbon Dioxide 30 mmol/L (21-32) 10/20/18 14:40 Anion Gap 3 MMOL/L (8-16) L 10/20/18 14:40 BUN 16.8 mg/dL (7-18) 10/20/18 14:40 Creatinine 0.9 mg/dL (0.55-1.3) 10/20/18 14:40 Random Glucose 79 mg/dL (74-106) 10/20/18 14:40 Calcium 8.4 mg/dL (8.5-10.1) L 10/20/18 14:40 Labs noted. Assessment: 10/22/18 10:00 AOX3, in no acute respiratory distress Full ROM, ambulating in the unit. withdrawal symptoms. Plan: continue detox.
[2018-10-22] MEDS: PRENATAL VITAMINS W/ FOLIC ACID TABLET (FP) PO SCH (10:26)
[2018-10-22] MEDS: MELATONIN 5 MG TABLETS PO PRN (22:31)
[2018-10-22] MEDS: THIAMINE HCL 100 MG TABLET (FP) PO SCH (22:32)
[2018-10-23] MEDS ORDERED: METHADONE HCL 5 MG TABLET (FOR DETOX USE ONLY) PO ONE (06:00)
[2018-10-23 06:34] VITALS: BP 117/69; PULSE 58; TEMP 96.9
--- NOTE | 2018-10-23 08:28 | PN ---
[facility] COWS - Scale Resting Pulse: 0= [place] 80 or Below Sweatin= No chills or Flushing Restless Observation: 0= Sits Still Pupil Size: 0= Normal to Room Light Bone or Joint Aches: 1= Mild Discomfort Runny Nose/ Eye Tearin= None GI Upset > 30mins: 0= None Tremor Observation of Outstretched Hands: 0= None Yawning Observation: 0= None Anxiety or Irritability: 1=Feels Anxious/Irritable Goose Flesh Skin: 0=Smooth Skin COWS Score: 2 [facility] Progress Note (SOAP) Subjective: alert,no complaint Objective: 10/23/18 08:27 Vital Signs Temperature 96.9 F L 10/23/18 06:33 Pulse Rate 58 L 10/23/18 06:33 Respiratory Rate 16 10/23/18 06:33 Blood Pressure 117/69 10/23/18 06:33 O2 Sat by Pulse Oximetry (%) Assessment: 10/23/18 08:27 detox completed,no withdrawal symptom Plan: stable for discharge today,follow up with after care program as arrangement
--- NOTE | 2018-10-23 08:29 | DS ---
[facility] Detox Discharge Summary Admission Date: 10/20/18 Discharge Date: 10/23/18 - History Present History: Cocaine Dependence, Opioid Dependence Additional Comments: follow up with after care program as arrangement Pertinent Past History: nicotine dependence depression history of syphilis - Physical Exam Results Vital Signs: Vital Signs Temperature 96.9 F L 10/23/18 06:33 Pulse Rate 58 L 10/23/18 06:33 Respiratory Rate 16 10/23/18 06:33 Blood Pressure 117/69 10/23/18 06:33 O2 Sat by Pulse Oximetry (%) Pertinent Admission Physical Exam Findings: withdrawal signs and symptom Laboratory Last Values WBC 3.4 K/mm3 (4.0-10.0) L 10/20/18 14:40 RBC 4.26 M/mm3 (4.00-5.60) 10/20/18 14:40 Hgb 12.0 GM/dL (11.7-16.9) 10/20/18 14:40 Hct 35.8 % (35.4-49) D 10/20/18 14:40 MCV 84.2 fl (80-96) 10/20/18 14:40 MCH 28.2 pg (25.7-33.7) 10/20/18 14:40 MCHC 33.5 g/dl (32.0-35.9) 10/20/18 14:40 RDW 14.8 % (11.9-15.9) 10/20/18 14:40 Plt Count 258 K/MM3 (134-434) 10/20/18 14:40 MPV 8.3 fl (7.5-11.1) 10/20/18 14:40 Sodium 137 mmol/L (136-145) 10/20/18 14:40 Potassium 4.4 mmol/L (3.5-5.1) 10/20/18 14:40 Chloride 104 mmol/L (98-107) 10/20/18 14:40 Carbon Dioxide 30 mmol/L (21-32) 10/20/18 14:40 Anion Gap 3 MMOL/L (8-16) L 10/20/18 14:40 BUN 16.8 mg/dL (7-18) 10/20/18 14:40 Creatinine 0.9 mg/dL (0.55-1.3) 10/20/18 14:40 Est GFR (CKD-EPI)AfAm 133.30 10/20/18 14:40 Est GFR (CKD-EPI)NonAf 115.01 10/20/18 14:40 Random Glucose 79 mg/dL (74-106) 10/20/18 14:40 Calcium 8.4 mg/dL (8.5-10.1) L 10/20/18 14:40 Total Bilirubin 0.7 mg/dL (0.2-1) 10/20/18 14:40 AST 34 U/L (15-37) 10/20/18 14:40 ALT 67 U/L (13-61) H 10/20/18 14:40 Alkaline Phosphatase 67 U/L (45-117) 10/20/18 14:40 Total Protein 6.6 g/dl (6.4-8.2) 10/20/18 14:40 Albumin 3.2 g/dl (3.4-5.0) L 10/20/18 14:40 RPR Titer Reactive 1:4 (NONREACTIVE) H 10/20/18 14:40 T.pallidum Ab (MHA) Previously reactive (NONREACTIVE) 10/20/18 14:40 - Treatment Hospital Course: Detox Protocol Followed, Detoxed Safely, Responded well, Discharged Condition Good Patient has Accepted a Rehab Referral to: declined - Medication Discharge Medications: Ambulatory Orders NK [No Known Home Medication] 08/13/18 - AMA Did Patient Leave Against Medical Advice: No
== END 2018-10-23 09:01 | disposition home or self-care (01) | DRG 773 ==
LOC: YASAS 10:00 → Y6N 14:40
PROVIDERS: ADMIT Surgery; ATTEND Surgery
PROC: HZ2ZZZZ Detoxification Services for Substance Abuse Treatment (ICD-10-PCS; principal; 2018-10-20)
DX: F11.23 Opioid dependence with withdrawal (principal); F14.20 Cocaine dependence, uncomplicated; F17.210 Nicotine dependence, cigarettes, uncomplicated; F32.9 Major depressive disorder, single episode, unspecified; Z86.19 Personal history of other infectious and parasitic diseases; Z91.5 Personal history of self-harm
CPT/HCPCS: 36415; 80053; 85027; 86593; 86780

== ENCOUNTER 2019-02-16 13:22 | Inpatient (IN) | payer SELFPAY ==
[2019-02-16 14:24] VITALS: BMI 25.1
--- NOTE | 2019-02-16 15:53 | HP ---
COWS - Scale Resting Pulse: 1= [place] 81-100 Sweatin= Chills/Flushing Restless Observation: 1= Difficult to Sit Still Pupil Size: 1= Pupils >than Normal Bone or Joint Aches: 1= Mild Discomfort Runny Nose/ Eye Tearin= Runny Nose/Eyes GI Upset > 30mins: 1= Stomach Cramp Tremor Observation: 2= Slight Tremor Visible Yawning Observation: 1= 1-2x During Session Anxiety or Irritability: 1=Feels Anxious/Irritable Goose Flesh Skin: 0=Smooth Skin COWS Score: 12 CIWA Score - Admission Criteria OASAS Guidelines: Admission for Medically Managed Detox: Requires at least one of the followin. CIWA greater than 12 2. Seizures within the past 24 hours 3. Delirium tremens within the past 24 hours 4. Hallucinations within the past 24 hours 5. Acute intervention needed for co occurring medical disorder 6. Acute intervention needed for co occurring psychiatric disorder 7. Severe withdrawal that cannot be handled at a lower level of care (continued vomiting, continued diarrhea, abnormal vital signs) requiring intravenous medication and/or fluids 8. Admitting History and Physical - Smoking History Smoking history: Current every day smoker Have you smoked in the past 12 months: Yes Aproximately how many cigarettes per day: 2 - Alcohol/Substance Use Hx Alcohol Use: Yes Admission ROS [facility] Chief Complaint: Detox heroin Allergies/Adverse Reactions: Allergies Allergy/AdvReac Type Severity Reaction Status Date / Time No Known Allergies Allergy Verified 02/16/19 14:17 History of Present Illness: 28 year old male with a history of depression here for heroin detox. Last here October for detox. 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 Wants to stop for himself and other people. Heroin: 20 bags per day, last time used today. IVDA into arms. OD'd twice, last time almost 1 year ago. Only started 1 year ago. Has a narcan kit. Reuses but does not share. Anxiety, nausea/vomiting, headaches, body aches. Never had a seizure. 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 PsxH: none Meds: none Allergies: NKDA FH: DM in mothers side, father is cocaine user; brother uses drugs Living Situation: Lives in [place], homeless ([facility]) - Ebola screening Have you traveled outside of the country in the last 21 days: No Have you had contact with anyone from an Ebola affected area: No Do you have a fever: No - Review of Systems Constitutional: Diaphoresis, Night Sweats EENT: reports: Nose Congestion Respiratory: reports: No Symptoms reported Cardiac: reports: No Symptoms Reported GI: reports: No Symptoms Reported : reports: No Symptoms Reported Musculoskeletal: reports: No Symptoms Reported Integumentary: reports: No Symptoms Reported Neuro: reports: No Symptoms reported Endocrine: reports: No Symptoms Reported Hematology: reports: No Symptoms Reported Psychiatric: reports: Judgement Intact, Mood/Affect Appropiate, Orientated x3 Patient History - Patient Medical History Hx Anemia: No Hx Asthma: No Hx Chronic Obstructive Pulmonary Disease (COPD): No Hx Cancer: No Hx Cardiac Disorders: No Hx Congestive Heart Failure: No Hx Hypertension: No Hx Hypercholesterolemia: No Hx Pacemaker: No HX Cerebrovascular Accident: No Hx Seizures: No Hx Dementia: No Hx Diabetes: No Hx Gastrointestinal Disorders: No Hx Liver Disease: No Hx Genitourinary Disorders: No Hx Sexually Transmitted Disorders: No Hx Renal Disease (ESRD): No Hx Thyroid Disease: No Hx Human Immunodeficiency Virus (HIV): No (negative 2019) Hx Hepatitis C: No Hx Depression: No Hx Suicide Attempt: No Hx Schizophrenia: No - Patient Surgical History Past Surgical History: No Hx Neurologic Surgery: No Hx Cataract Extraction: No Hx Cardiac Surgery: No Hx Lung Surgery: No Hx Breast Surgery: No Hx Breast Biopsy: No Hx Abdominal Surgery: No Hx Appendectomy: No Hx Cholecystectomy: No Hx Genitourinary Surgery: No Hx Section: No Hx Orthopedic Surgery: No Anesthesia Reaction: No - PPD History Date: 08/16/18 Results: 0 mm - Smoking Cessation Smoking history: Current every day smoker Have you smoked in the past 12 months: Yes Aproximately how many cigarettes per day: 2 Hx Chewing Tobacco Use: No Initiated information on smoking cessation: Yes 'Breaking Loose' booklet given: 02/16/19 - Substances abused Cocaine Substance route: Injection Frequency: 1-3 times last 30 days Amount used: 1gram Age of first use: 15 Date of last use: 02/14/19 Heroin Substance route: Injection Frequency: Daily Amount used: 20 BAGS/DAY Age of first use: 26 Date of last use: 02/16/19 Other Other (specify): Crystal Meth Substance route: Injection Frequency: Daily Amount used: $100 Age of first use: 27 Date of last use: 02/16/19 Admission Physical Exam [facility] - Vital Signs Vital Signs: Vital Signs - 24 hr 02/16/19 14:16 Temperature 99.7 F H Pulse Rate 85 Respiratory 18 Rate Blood Pressure 160/84 - Physical General Appearance: Yes: Within Normal Limits HEENTM: Yes: Within Normal Limits Respiratory: Yes: Within Normal Limits Neck: Yes: Within Normal Limits Breast: Yes: Within Normal Limits Cardiology: Yes: Regular Rhythm, Regular Rate Abdominal: Yes: Normal Bowel Sounds, Non Tender, Flat Genitourinary: Yes: Within Normal Limits Musculoskeletal: Yes: Gait Steady, Pelvis Stable Extremities: Yes: Normal Capillary Refill, Normal Inspection, Normal Range of Motion, Non-Tender 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, Fully Oriented, Alert, Motor Strength 5/5, Normal Mood/Affect, Normal Response Integumentary: Yes: Normal Color, Dry, Warm - Diagnostic (1) Opioid dependence with withdrawal Current Visit: No Status: Acute (2) Depression Current Visit: No Status: Chronic Qualifiers: Depression Type: unspecified Qualified Code(s): F32.9 - Major depressive disorder, single episode, unspecified Cleared for Admission [facility] - Detox or Rehab [facility] Level of Care: Medically Managed Breathalyzer - Breathalyzer Breathalyzer: 0 Urine Drug Screen - Test Device Lot number: [id number] Expiration date: 09/18/20 - Control Is test valid?: Yes - Results Drug screen NEGATIVE: No Urine drug screen results: MET-Methamphetamine, AMP-Amphetamines, MOP-Opiates, OXY-Oxycodone, MDMA-Ecstasy Inpatient Rehab Admission - Rehab Decision to Admit Inpatient rehab admission?: No
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
[2019-02-16] MEDS ORDERED: MAG HYDROX/AL HYDROX/SIMETH 30 ML UNIT-DOSE CUP PO PRN (16:33)
[2019-02-16] MEDS ORDERED: MAGNESIUM HYDROX 2400MG/30ML ORAL SUSPENSION 30 ML CUP PO PRN (16:33)
[2019-02-16] MEDS ORDERED: MENTHOL/PHENOL 1 EACH UD MM PRN (16:33)
[2019-02-16] MEDS ORDERED: MELATONIN 5 MG TABLETS PO PRN (16:33)
[2019-02-16] MEDS ORDERED: METHOCARBAMOL 500 MG TABLET PO PRN (16:33)
[2019-02-16] MEDS ORDERED: BISMUTH SUBSALICYLATE 524 MG/30 ML UD PO PRN (16:33)
[2019-02-16] MEDS ORDERED: ACETAMINOPHEN 325 MG TABLET (FP) PO PRN ×2 (16:33)
[2019-02-16] MEDS ORDERED: hydrOXYzine PAMOATE 25 MG CAPSULE (FP) PO PRN (16:33)
[2019-02-16] MEDS ORDERED: cloNIDine HCL 0.1 MG TABLET PO PRN (16:33)
[2019-02-16] MEDS ORDERED: IBUPROFEN 400 MG TABLET (FP) PO PRN (16:33)
[2019-02-16] MEDS ORDERED: MAGNESIUM CITRATE 300 ML BOTTLE PO PRN (16:33)
[2019-02-16] MEDS ORDERED: METHADONE HCL 10 MG TABLET (FOR DETOX USE ONLY) PO ONE (17:30)
[2019-02-16] MEDS ORDERED: clonazePAM 0.5 MG TABLET PO PRN (20:28)
[2019-02-16] MEDS ORDERED: THIAMINE HCL 100 MG TABLET (FP) PO SCH (22:00)
[2019-02-17] MEDS ORDERED: METHADONE HCL 10 MG TABLET (FOR DETOX USE ONLY) ONE (08:57)
[2019-02-17] MEDS ORDERED: METHADONE HCL 5 MG TABLET (FOR DETOX USE ONLY) ONE (08:57)
[2019-02-17 09:21] VITALS: BP 102/53; PULSE 66; TEMP 98.4
[2019-02-17] MEDS ORDERED: PRENATAL VITAMINS W/ FOLIC ACID TABLET (FP) PO SCH (10:00)
[2019-02-17] MEDS ORDERED: METHADONE (DETOX) 20 MG, METHADONE (DETOX) 5 MG PO ONE (10:00)
[2019-02-17 10:02] LABS: HEMATOCRIT 38.5 % (35.4-49); MCH 28.4 pg (25.7-33.7); MCHC 33.6 g/dl (32.0-35.9); MEAN CELL VOLUME 84.5 fl (80-96); MEAN PLT VOLUME 7.8 fl (7.5-11.1); PLATELET COUNT 284 K/MM3 (134-434); RBC 4.56 M/mm3 (4.00-5.60); WHITE BLOOD COUNT 4.9 K/mm3 (4.0-10.0)
[2019-02-17 10:09] LABS: ALBUMIN 3.5 g/dl (3.4-5.0); BILIRUBIN,TOTAL 1.4 mg/dL (0.2-1); BLOOD UREA NITROGEN 13.8 mg/dL (7-18); CREATININE 0.7 mg/dL (0.55-1.3); POTASSIUM 4.4 mmol/L (3.5-5.1); TOT PROT 7.5 g/dl (6.4-8.2)
--- NOTE | 2019-02-17 11:25 | PN ---
[facility] COWS - Scale Resting Pulse: 0= MI 80 or Below Sweatin= No chills or Flushing Restless Observation: 1= Difficult to Sit Still Pupil Size: 1= Pupils >than Normal Bone or Joint Aches: 1= Mild Discomfort Runny Nose/ Eye Tearin= Nasal Congestion GI Upset > 30mins: 1= Stomach Cramp Tremor Observation of Outstretched Hands: 2= Slight Tremor Visible Yawning Observation: 1= 1-2x During Session Anxiety or Irritability: 2=Irritable/Anxious Goose Flesh Skin: 0=Smooth Skin COWS Score: 10 [facility] Progress Note (SOAP) Subjective: alert,irritable,anxious,interrupted sleep,painin the body and back Objective: 02/17/19 11:24 Vital Signs Temperature 98.4 F 02/17/19 09:20 Pulse Rate 66 02/17/19 09:20 Respiratory Rate 18 02/17/19 09:20 Blood Pressure 102/53 L 02/17/19 09:20 O2 Sat by Pulse Oximetry (%) Laboratory Last Values WBC 4.9 K/mm3 (4.0-10.0) 02/17/19 08:00 RBC 4.56 M/mm3 (4.00-5.60) 02/17/19 08:00 Hgb 13.0 GM/dL (11.7-16.9) 02/17/19 08:00 Hct 38.5 % (35.4-49) 02/17/19 08:00 MCV 84.5 fl (80-96) 02/17/19 08:00 MCH 28.4 pg (25.7-33.7) 02/17/19 08:00 MCHC 33.6 g/dl (32.0-35.9) 02/17/19 08:00 RDW 14.0 % (11.9-15.9) 02/17/19 08:00 Plt Count 284 K/MM3 (134-434) 02/17/19 08:00 MPV 7.8 fl (7.5-11.1) 02/17/19 08:00 Sodium 138 mmol/L (136-145) 02/17/19 08:00 Potassium 4.4 mmol/L (3.5-5.1) 02/17/19 08:00 Chloride 104 mmol/L (98-107) 02/17/19 08:00 Carbon Dioxide 29 mmol/L (21-32) 02/17/19 08:00 Anion Gap 5 MMOL/L (8-16) L 02/17/19 08:00 BUN 13.8 mg/dL (7-18) 02/17/19 08:00 Creatinine 0.7 mg/dL (0.55-1.3) 02/17/19 08:00 Est GFR (CKD-EPI)AfAm 147.81 02/17/19 08:00 Est GFR (CKD-EPI)NonAf 127.53 02/17/19 08:00 Random Glucose 88 mg/dL (74-106) 02/17/19 08:00 Calcium 9.0 mg/dL (8.5-10.1) 02/17/19 08:00 Total Bilirubin 1.4 mg/dL (0.2-1) H 02/17/19 08:00 AST 17 U/L (15-37) 02/17/19 08:00 ALT 30 U/L (13-61) 02/17/19 08:00 Alkaline Phosphatase 75 U/L (45-117) 02/17/19 08:00 Total Protein 7.5 g/dl (6.4-8.2) 02/17/19 08:00 Albumin 3.5 g/dl (3.4-5.0) 02/17/19 08:00 Assessment: 02/17/19 11:25 withdrawal symptom Plan: continue detox,methadone regimen
[2019-02-17 11:26] LABS: RPR REACTIVE 1:4 (NONREACTIVE)
--- NOTE | 2019-02-17 11:29 | PN ---
[facility] Progress Note Note: patient did not want to stay to complete treatment,left ama,all attempts to convince patient to stay with no avail, seen by Brit Orantes nursing road supervisor of engines,advise to call 911 if not feeling well
[2019-02-17 11:31] LABS: TREPONEMA ANTIBODY PREVIOUSLY REACTIVE (NONREACTIVE)
--- NOTE | 2019-02-17 11:31 | DS ---
[facility] Detox Discharge Summary Admission Date: 02/16/19 Discharge Date: 02/17/19 - History Present History: Cocaine Dependence, Opioid Dependence Additional Comments: patient did not want to complete treatment,left ama,advise to call 911 if not feeling well,history of positive rpr and treated with 3 injection in 08/07 Pertinent Past History: ivdu positive RPR treated - Physical Exam Results Vital Signs: Vital Signs Temperature 98.4 F 02/17/19 09:20 Pulse Rate 66 02/17/19 09:20 Respiratory Rate 18 02/17/19 09:20 Blood Pressure 102/53 L 02/17/19 09:20 O2 Sat by Pulse Oximetry (%) Pertinent Admission Physical Exam Findings: withdrawal signs and symptom Laboratory Last Values WBC 4.9 K/mm3 (4.0-10.0) 02/17/19 08:00 RBC 4.56 M/mm3 (4.00-5.60) 02/17/19 08:00 Hgb 13.0 GM/dL (11.7-16.9) 02/17/19 08:00 Hct 38.5 % (35.4-49) 02/17/19 08:00 MCV 84.5 fl (80-96) 02/17/19 08:00 MCH 28.4 pg (25.7-33.7) 02/17/19 08:00 MCHC 33.6 g/dl (32.0-35.9) 02/17/19 08:00 RDW 14.0 % (11.9-15.9) 02/17/19 08:00 Plt Count 284 K/MM3 (134-434) 02/17/19 08:00 MPV 7.8 fl (7.5-11.1) 02/17/19 08:00 Sodium 138 mmol/L (136-145) 02/17/19 08:00 Potassium 4.4 mmol/L (3.5-5.1) 02/17/19 08:00 Chloride 104 mmol/L (98-107) 02/17/19 08:00 Carbon Dioxide 29 mmol/L (21-32) 02/17/19 08:00 Anion Gap 5 MMOL/L (8-16) L 02/17/19 08:00 BUN 13.8 mg/dL (7-18) 02/17/19 08:00 Creatinine 0.7 mg/dL (0.55-1.3) 02/17/19 08:00 Est GFR (CKD-EPI)AfAm 147.81 02/17/19 08:00 Est GFR (CKD-EPI)NonAf 127.53 02/17/19 08:00 Random Glucose 88 mg/dL (74-106) 02/17/19 08:00 Calcium 9.0 mg/dL (8.5-10.1) 02/17/19 08:00 Total Bilirubin 1.4 mg/dL (0.2-1) H 02/17/19 08:00 AST 17 U/L (15-37) 02/17/19 08:00 ALT 30 U/L (13-61) 02/17/19 08:00 Alkaline Phosphatase 75 U/L (45-117) 02/17/19 08:00 Total Protein 7.5 g/dl (6.4-8.2) 02/17/19 08:00 Albumin 3.5 g/dl (3.4-5.0) 02/17/19 08:00 RPR Titer Reactive 1:4 (NONREACTIVE) H 02/17/19 08:00 Vital Signs Temperature 98.4 F 02/17/19 09:20 Pulse Rate 66 02/17/19 09:20 Respiratory Rate 18 02/17/19 09:20 Blood Pressure 102/53 L 02/17/19 09:20 O2 Sat by Pulse Oximetry (%) - Medication Discharge Medications: Ambulatory Orders NK [No Known Home Medication] 08/13/18 - Diagnosis (1) Opioid dependence with withdrawal Current Visit: No Status: Acute (2) Cocaine dependence Current Visit: No Status: Acute Qualifiers: Substance use status: in withdrawal Qualified Code(s): F14.23 - Cocaine dependence with withdrawal (3) Nicotine dependence Current Visit: No Status: Chronic Qualifiers: Nicotine product type: cigarettes Substance use status: uncomplicated Qualified Code(s): F17.210 - Nicotine dependence, cigarettes, uncomplicated (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
[2019-02-18] MEDS ORDERED: METHADONE HCL 10 MG TABLET (FOR DETOX USE ONLY) PO ONE (10:00)
[2019-02-19] MEDS ORDERED: METHADONE (DETOX) 10 MG, METHADONE (DETOX) 5 MG PO ONE (10:00)
[2019-02-20] MEDS ORDERED: METHADONE HCL 10 MG TABLET (FOR DETOX USE ONLY) PO ONE (10:00)
[2019-02-21] MEDS ORDERED: METHADONE HCL 5 MG TABLET (FOR DETOX USE ONLY) PO ONE (06:00)
== END 2019-02-17 11:11 | disposition left against medical advice (07) | DRG 770 ==
LOC: YASAS 13:22 → Y6N 17:11
PROVIDERS: ADMIT Allergy & Immunology; ATTEND Allergy & Immunology
PROC: HZ2ZZZZ Detoxification Services for Substance Abuse Treatment (ICD-10-PCS; principal; 2019-02-16)
DX: F11.23 Opioid dependence with withdrawal (principal); F15.20 Other stimulant dependence, uncomplicated; F14.20 Cocaine dependence, uncomplicated; F17.210 Nicotine dependence, cigarettes, uncomplicated; R76.11 Nonspecific reaction to tuberculin skin test without active tuberculosis; Z56.0 Unemployment, unspecified; Z59.0 Homelessness
CPT/HCPCS: 36415; 80053; 85027; 86593; 86780; 87389

== ENCOUNTER 2020-10-01 11:21 | Inpatient (IN) | payer OTHER ==
[2020-10-01 12:50] VITALS: BMI 26.4
[2020-10-01] MEDS ORDERED: MENTHOL/PHENOL 1 EACH UD MM PRN (15:30)
[2020-10-01] MEDS ORDERED: ACETAMINOPHEN 325 MG TABLET (FP) PO PRN ×2 (15:30)
[2020-10-01] MEDS ORDERED: IBUPROFEN 400 MG TABLET (FP) PO PRN (15:30)
[2020-10-01] MEDS ORDERED: NICOTINE POLACRILEX 2 MG GUM BUC PRN (15:30)
[2020-10-01] MEDS ORDERED: MAG HYDROX/AL HYDROX/SIMETH 30 ML UNIT-DOSE CUP PO PRN (15:30)
[2020-10-01] MEDS ORDERED: MAGNESIUM HYDROX 2400MG/30ML ORAL SUSPENSION 30 ML CUP PO PRN (15:30)
[2020-10-01] MEDS ORDERED: MAGNESIUM CITRATE 300 ML BOTTLE PO PRN (15:30)
[2020-10-01] MEDS ORDERED: cloNIDine HCL 0.1 MG TABLET PO PRN (15:30)
[2020-10-01] MEDS ORDERED: BISMUTH SUBSALICYLATE 524 MG/30 ML PO PRN (15:30)
[2020-10-01] MEDS ORDERED: METHADONE HCL 10 MG TABLET (FOR DETOX USE ONLY) PO ONE (16:30)
[2020-10-01] MEDS ORDERED: TUBERCULIN PPD 5 TU/0.1ML VIAL ID ONE (17:22)
[2020-10-01] MEDS: THIAMINE HCL 100 MG TABLET (FP) PO SCH (22:18)
[2020-10-01] MEDS: MELATONIN 5 MG TABLETS PO SCH (22:18)
[2020-10-01] MEDS: METHOCARBAMOL 500 MG TABLET PO PRN (22:19)
[2020-10-02] MEDS ORDERED: METHADONE (DETOX) 20 MG, METHADONE (DETOX) 5 MG PO ONE (10:00)
[2020-10-02] MEDS ORDERED: METHADONE HCL 10 MG TABLET (FOR DETOX USE ONLY) ONE (10:06)
[2020-10-02] MEDS ORDERED: METHADONE HCL 5 MG TABLET (FOR DETOX USE ONLY) ONE (10:07)
[2020-10-02 10:27] LABS: ALBUMIN 3.8 g/dl (3.4-5.0); BLOOD UREA NITROGEN 10.8 mg/dL (7-18); CALCIUM 8.9 mg/dL (8.5-10.1); HEMATOCRIT 40.1 % (35.4-49); HEMOGLOBIN 13.5 GM/dL (11.7-16.9); MCHC 33.5 g/dl (32.0-35.9); MEAN CELL VOLUME 83.6 fl (80-96); MEAN PLT VOLUME 7.7 fl (7.5-11.1); PLATELET COUNT 295 K/MM3 (134-434); RDW 13.9 % (11.9-15.9); WHITE BLOOD COUNT 3.7 K/mm3 (4.0-10.0)
[2020-10-02 10:30] LABS: CREATININE 0.7 mg/dL (0.55-1.3)
[2020-10-02 10:32] LABS: BILIRUBIN,TOTAL 0.9 mg/dL (0.2-1); TOT PROT 7.7 g/dl (6.4-8.2)
[2020-10-02] MEDS: PRENATAL VITAMINS W/ FOLIC ACID TABLET (FP) PO SCH (10:32)
[2020-10-02] MEDS: NICOTINE 7 MG/24 HOURS TOPICAL PATCH TD SCH (10:32)
[2020-10-02] MEDS: METHOCARBAMOL 500 MG TABLET PO PRN ×2 (10:32→22:05)
[2020-10-02] MEDS: THIAMINE HCL 100 MG TABLET (FP) PO SCH (22:05)
[2020-10-02] MEDS: MELATONIN 5 MG TABLETS PO SCH (22:05)
[2020-10-03] MEDS ORDERED: METHADONE HCL 10 MG TABLET (FOR DETOX USE ONLY) PO ONE (10:00)
[2020-10-03] MEDS: NICOTINE 7 MG/24 HOURS TOPICAL PATCH TD SCH (10:31)
[2020-10-03] MEDS: PRENATAL VITAMINS W/ FOLIC ACID TABLET (FP) PO SCH (10:42)
[2020-10-03] MEDS: diazePAM 5 MG TABLET PO PRN ×2 (12:39→23:09)
[2020-10-03] MEDS: METHOCARBAMOL 500 MG TABLET PO PRN (23:09)
[2020-10-03] MEDS: MELATONIN 5 MG TABLETS PO SCH (23:10)
[2020-10-03] MEDS: THIAMINE HCL 100 MG TABLET (FP) PO SCH (23:12)
[2020-10-04 09:43] VITALS: TEMP 97.1
[2020-10-04] MEDS ORDERED: METHADONE HCL 10 MG TABLET (FOR DETOX USE ONLY) ONE (09:57)
[2020-10-04] MEDS ORDERED: METHADONE HCL 5 MG TABLET (FOR DETOX USE ONLY) ONE (09:57)
[2020-10-04] MEDS ORDERED: METHADONE (DETOX) 10 MG, METHADONE (DETOX) 5 MG PO ONE (10:00)
[2020-10-04] MEDS: diazePAM 5 MG TABLET PO PRN (10:01)
[2020-10-04] MEDS: NICOTINE 7 MG/24 HOURS TOPICAL PATCH TD SCH (10:01)
[2020-10-04] MEDS: PRENATAL VITAMINS W/ FOLIC ACID TABLET (FP) PO SCH (10:01)
[2020-10-04] MEDS ORDERED: DICYCLOMINE HCL 10 MG CAPSULE PO PRN (11:12)
[2020-10-04 13:01] VITALS: BP 119/73; PULSE 80
[2020-10-05] MEDS ORDERED: METHADONE HCL 10 MG TABLET (FOR DETOX USE ONLY) PO ONE (10:00)
[2020-10-06] MEDS ORDERED: METHADONE HCL 5 MG TABLET (FOR DETOX USE ONLY) PO ONE (06:00)
== END 2020-10-04 13:17 | disposition left against medical advice (07) | DRG 770 ==
LOC: YASAS 11:21 → Y3N 16:20
PROVIDERS: ADMIT Allergy & Immunology; ATTEND Allergy & Immunology
PROC: HZ2ZZZZ Detoxification Services for Substance Abuse Treatment (ICD-10-PCS; principal; 2020-10-01)
DX: F11.23 Opioid dependence with withdrawal (principal); F14.20 Cocaine dependence, uncomplicated; F15.20 Other stimulant dependence, uncomplicated; F17.210 Nicotine dependence, cigarettes, uncomplicated; F19.24 Other psychoactive substance dependence with psychoactive substance-induced mood disorder; F32.9 Major depressive disorder, single episode, unspecified; A53.0 Latent syphilis, unspecified as early or late; R74.01 Elevation of levels of liver transaminase levels; Z62.810 Personal history of physical and sexual abuse in childhood; Z87.891 Personal history of nicotine dependence
CPT/HCPCS: 36415; 80053; 85027; 86593; 86780; 93005; 93010; C9803; J0735; U0003; U0005

== ENCOUNTER 2020-11-01 17:22 | Inpatient (IN) | payer OTHER ==
[2020-11-01] MEDS ORDERED: MAGNESIUM CITRATE 300 ML BOTTLE PO PRN (22:46)
[2020-11-01] MEDS ORDERED: MAGNESIUM HYDROX 2400MG/30ML ORAL SUSPENSION 30 ML CUP PO PRN (22:46)
[2020-11-01] MEDS ORDERED: METHOCARBAMOL 500 MG TABLET PO PRN (22:46)
[2020-11-01] MEDS ORDERED: IBUPROFEN 400 MG TABLET (FP) PO PRN (22:46)
[2020-11-01] MEDS ORDERED: P-EPHED 60MG/TRIPROLIDI 2.5MG TABLET PO PRN (22:46)
[2020-11-01] MEDS ORDERED: ACETAMINOPHEN 325 MG TABLET (FP) PO PRN ×2 (22:46)
[2020-11-01] MEDS ORDERED: NALOXONE (NARCAN) HCL 4 MG/0.1 ML SPRAY NS PRN (22:46)
[2020-11-01] MEDS ORDERED: NALOXONE HCL 0.4 MG/ML VIAL IM PRN (22:46)
[2020-11-01] MEDS ORDERED: BISMUTH SUBSALICYLATE 524 MG/30 ML PO PRN (22:46)
[2020-11-01] MEDS ORDERED: guaiFENesin 200 MG/10 ML 10 ML UNIT-DOSE CUPS PO PRN (22:46)
[2020-11-01] MEDS ORDERED: MENTHOL/PHENOL 1 EACH UD MM PRN (22:46)
[2020-11-01] MEDS ORDERED: MAG HYDROX/AL HYDROX/SIMETH 30 ML UNIT-DOSE CUP PO PRN (22:46)
[2020-11-01] MEDS ORDERED: ONDANSETRON *ODT* 4 MG TABLET SL PRN (22:46)
[2020-11-01] MEDS ORDERED: hydrOXYzine PAMOATE 25 MG CAPSULE (FP) PO PRN (22:46)
[2020-11-01] MEDS ORDERED: DICYCLOMINE HCL 10 MG CAPSULE PO PRN (22:46)
[2020-11-01 23:09] VITALS: BMI 26.6
[2020-11-02] MEDS ORDERED: cloNIDine HCL 0.1 MG TABLET PO PRN (00:06)
[2020-11-02] MEDS ORDERED: methaDONE HCL 10 MG TABLET (FOR DETOX USE ONLY) PO ONE (00:06)
[2020-11-02] MEDS ORDERED: PRENATAL VITAMINS W/ FOLIC ACID TABLET (FP) PO SCH (10:00)
[2020-11-02 13:34] LABS: HEMATOCRIT 42.4 % (35.4-49); HEMOGLOBIN 14.2 GM/dL (11.7-16.9); MCH 28.1 pg (25.7-33.7); MCHC 33.5 g/dl (32.0-35.9); MEAN CELL VOLUME 83.9 fl (80-96); MEAN PLT VOLUME 7.9 fl (7.5-11.1); PLATELET COUNT 340 10^3/uL (134-434); RBC 5.05 M/mm3 (4.00-5.60); RDW 14.3 % (11.9-15.9); WHITE BLOOD COUNT 4.3 K/mm3 (4.0-10.0)
[2020-11-02 13:47] LABS: ALBUMIN 3.9 g/dl (3.4-5.0); BLOOD UREA NITROGEN 14.8 mg/dL (7-18)
[2020-11-02 13:49] LABS: BILIRUBIN,TOTAL 1.1 mg/dL (0.2-1); CREATININE 0.8 mg/dL (0.55-1.3)
[2020-11-02] MEDS ORDERED: MELATONIN 5 MG TABLETS PO SCH (22:00)
[2020-11-02] MEDS ORDERED: THIAMINE HCL 100 MG TABLET (FP) PO SCH (22:00)
[2020-11-03 06:55] VITALS: BP 109/68; PULSE 64; TEMP 97.1
[2020-11-04] MEDS ORDERED: methaDONE HCL 10 MG TABLET (FOR DETOX USE ONLY) PO ONE (10:00)
[2020-11-06] MEDS ORDERED: methaDONE HCL 10 MG TABLET (FOR DETOX USE ONLY) PO ONE (10:00)
== END 2020-11-03 09:03 | disposition left against medical advice (07) | DRG 770 ==
LOC: YASAS 17:22 → Y3N 11-02 08:08
PROVIDERS: ADMIT Allergy & Immunology; ATTEND Allergy & Immunology
PROC: HZ2ZZZZ Detoxification Services for Substance Abuse Treatment (ICD-10-PCS; principal; 2020-11-02)
DX: F11.23 Opioid dependence with withdrawal (principal); F14.20 Cocaine dependence, uncomplicated; F15.20 Other stimulant dependence, uncomplicated; F19.24 Other psychoactive substance dependence with psychoactive substance-induced mood disorder; Z86.19 Personal history of other infectious and parasitic diseases; Z87.891 Personal history of nicotine dependence
CPT/HCPCS: 36415; 80053; 85027; 86593; 86780; C9803; J0735; U0003; U0005

== ENCOUNTER 2021-02-05 19:14 | Emergency (ER) | payer OTHER ==
[2021-02-05 19:22] VITALS: BP 119/80; PULSE 63; TEMP 98.6; BMI 25.7
== END 2021-02-05 20:47 | disposition home or self-care (01) ==
LOC: JERFT 19:14
DX: F11.10 Opioid abuse, uncomplicated (principal)
CPT/HCPCS: 99281-25

== ENCOUNTER 2021-02-05 21:02 | Inpatient (IN) | payer OTHER ==
[2021-02-06] MEDS ORDERED: MAGNESIUM HYDROX 2400MG/30ML ORAL SUSPENSION 30 ML CUP PO PRN (01:32)
[2021-02-06] MEDS ORDERED: DICYCLOMINE HCL 10 MG CAPSULE PO PRN (01:32)
[2021-02-06] MEDS ORDERED: IBUPROFEN 400 MG TABLET (FP) PO PRN (01:32)
[2021-02-06] MEDS ORDERED: BISMUTH SUBSALICYLATE 524 MG/30 ML PO PRN (01:32)
[2021-02-06] MEDS ORDERED: MENTHOL/PHENOL 1 EACH UD MM PRN (01:32)
[2021-02-06] MEDS ORDERED: MAG HYDROX/AL HYDROX/SIMETH 30 ML UNIT-DOSE CUP PO PRN (01:32)
[2021-02-06] MEDS ORDERED: P-EPHED 60MG/TRIPROLIDI 2.5MG TABLET PO PRN (01:32)
[2021-02-06] MEDS ORDERED: ACETAMINOPHEN 325 MG TABLET (FP) PO PRN ×2 (01:32)
[2021-02-06] MEDS ORDERED: MAGNESIUM CITRATE 300 ML BOTTLE PO PRN (01:32)
[2021-02-06] MEDS ORDERED: methaDONE HCL 10 MG TABLET (FOR DETOX USE ONLY) PO ONE (01:34)
[2021-02-06] MEDS ORDERED: cloNIDine HCL 0.1 MG TABLET PO PRN (01:34)
[2021-02-06 04:51] VITALS: BMI 25.9
[2021-02-06] MEDS ORDERED: ONDANSETRON *ODT* 4 MG TABLET ONE (09:12)
[2021-02-06] MEDS: ONDANSETRON *ODT* 4 MG TABLET SL PRN (09:14)
[2021-02-06] MEDS ORDERED: methaDONE HCL 10 MG TABLET (FOR DETOX USE ONLY) ONE (10:34)
[2021-02-06] MEDS: PRENATAL VITAMINS W/ FOLIC ACID TABLET (FP) PO SCH (10:38)
[2021-02-06 17:05] LABS: HEMOGLOBIN 13.3 GM/dL (11.7-16.9); MCH 28.7 pg (25.7-33.7); MCHC 34.1 g/dl (32.0-35.9); MEAN CELL VOLUME 84.1 fl (80-96); MEAN PLT VOLUME 8.4 fl (7.5-11.1); PLATELET COUNT 319 10^3/uL (134-434); RBC 4.64 M/mm3 (4.00-5.60); RDW 14.6 % (11.9-15.9); WHITE BLOOD COUNT 4.2 K/mm3 (4.0-10.0)
[2021-02-06 17:11] LABS: CALCIUM 8.4 mg/dL (8.5-10.1)
[2021-02-06 17:12] LABS: BLOOD UREA NITROGEN 17.9 mg/dL (7-18)
[2021-02-06 17:15] LABS: CREATININE 0.8 mg/dL (0.55-1.3)
[2021-02-06 17:16] LABS: BILIRUBIN,TOTAL 0.5 mg/dL (0.2-1); TOT PROT 6.9 g/dl (6.4-8.2)
[2021-02-06] MEDS: hydrOXYzine PAMOATE 25 MG CAPSULE (FP) PO PRN ×2 (17:50→22:19)
[2021-02-06] MEDS: METHOCARBAMOL 500 MG TABLET PO PRN (17:50)
[2021-02-06] MEDS: MELATONIN 5 MG TABLETS PO SCH (22:19)
[2021-02-06] MEDS: THIAMINE HCL 100 MG TABLET (FP) PO SCH (22:20)
[2021-02-07] MEDS ORDERED: methaDONE HCL 10 MG TABLET (FOR DETOX USE ONLY) PO ONE (10:00)
[2021-02-07] MEDS: PRENATAL VITAMINS W/ FOLIC ACID TABLET (FP) PO SCH (10:22)
[2021-02-07] MEDS: diazePAM 5 MG TABLET PO PRN ×2 (10:24→18:07)
[2021-02-07] MEDS: MELATONIN 5 MG TABLETS PO SCH (22:35)
[2021-02-07] MEDS: THIAMINE HCL 100 MG TABLET (FP) PO SCH (22:35)
[2021-02-08] MEDS: diazePAM 5 MG TABLET PO PRN ×4 (05:17→22:04)
[2021-02-08] MEDS ORDERED: methaDONE HCL 10 MG TABLET (FOR DETOX USE ONLY) ONE (09:20)
[2021-02-08] MEDS: PRENATAL VITAMINS W/ FOLIC ACID TABLET (FP) PO SCH (10:24)
[2021-02-08] MEDS: THIAMINE HCL 100 MG TABLET (FP) PO SCH (22:03)
[2021-02-08] MEDS: MELATONIN 5 MG TABLETS PO SCH (22:03)
[2021-02-08] MEDS: METHOCARBAMOL 500 MG TABLET PO PRN (22:04)
[2021-02-09] MEDS: hydrOXYzine PAMOATE 25 MG CAPSULE (FP) PO PRN (01:25)
[2021-02-09] MEDS ORDERED: methaDONE HCL 10 MG TABLET (FOR DETOX USE ONLY) PO ONE (10:00)
[2021-02-09] MEDS: diazePAM 5 MG TABLET PO PRN ×3 (10:21→22:08)
[2021-02-09] MEDS: PRENATAL VITAMINS W/ FOLIC ACID TABLET (FP) PO SCH (10:23)
[2021-02-09] MEDS: METHOCARBAMOL 500 MG TABLET PO PRN (17:37)
[2021-02-09] MEDS: ONDANSETRON *ODT* 4 MG TABLET SL PRN (20:43)
[2021-02-09] MEDS: MELATONIN 5 MG TABLETS PO SCH (22:08)
[2021-02-09] MEDS: THIAMINE HCL 100 MG TABLET (FP) PO SCH (22:08)
[2021-02-10] MEDS: diazePAM 5 MG TABLET PO PRN (06:26)
[2021-02-10 09:12] VITALS: BP 115/65; PULSE 72; TEMP 97.2
[2021-02-10] MEDS: PRENATAL VITAMINS W/ FOLIC ACID TABLET (FP) PO SCH (10:58)
== END 2021-02-10 10:29 | disposition home or self-care (01) | DRG 773 ==
LOC: YASAS 21:02 → Y3N 02-06 11:20
PROVIDERS: ADMIT Allergy & Immunology; ATTEND Allergy & Immunology
PROC: HZ2ZZZZ Detoxification Services for Substance Abuse Treatment (ICD-10-PCS; principal; 2021-02-06)
DX: F11.23 Opioid dependence with withdrawal (principal); Z87.891 Personal history of nicotine dependence; Z86.19 Personal history of other infectious and parasitic diseases
CPT/HCPCS: 36415; 80053; 85027; 86593; 86780; C9803; Q0162; U0003; U0005

== ENCOUNTER 2022-02-17 10:57 | Inpatient (IN) | payer OTHER ==
[2022-02-17 11:43] VITALS: BMI 25.7
[2022-02-17] MEDS ORDERED: MAGNESIUM CITRATE 300 ML BOTTLE PO PRN (12:03)
[2022-02-17] MEDS ORDERED: NICOTINE 10 MG CARTRIDGE (INHALER) IH PRN (12:03)
[2022-02-17] MEDS ORDERED: MAG HYDROX/AL HYDROX/SIMETH 30 ML UNIT-DOSE CUP PO PRN (12:03)
[2022-02-17] MEDS ORDERED: DICYCLOMINE HCL 10 MG CAPSULE PO PRN (12:03)
[2022-02-17] MEDS ORDERED: NALOXONE HCL (KLOXXADO) 8 MG SPRAY NS PRN (12:03)
[2022-02-17] MEDS ORDERED: MAGNESIUM HYDROX 2400MG/30ML ORAL SUSPENSION 30 ML CUP PO PRN (12:03)
[2022-02-17] MEDS ORDERED: cloNIDine HCL 0.1 MG TABLET PO PRN (12:03)
[2022-02-17] MEDS ORDERED: LOPERAMIDE HCL 2 MG CAPSULE PO PRN (12:03)
[2022-02-17] MEDS ORDERED: BENZOCAINE/MENTHOL (CHLORASEPTIC ) LOZENGE MM PRN (12:03)
[2022-02-17] MEDS ORDERED: ACETAMINOPHEN 325 MG TABLET (FP) PO PRN ×2 (12:03)
[2022-02-17] MEDS ORDERED: IBUPROFEN 600 MG TABLET (FP) PO PRN (12:03)
[2022-02-17] MEDS ORDERED: METHOCARBAMOL 500 MG TABLET PO PRN (12:03)
[2022-02-17] MEDS ORDERED: IBUPROFEN 400 MG TABLET (FP) PO PRN (12:03)
[2022-02-17] MEDS ORDERED: BISMUTH SUBSALICYLATE 524 MG/30 ML PO PRN (12:03)
[2022-02-17] MEDS ORDERED: methaDONE HCL 10 MG TABLET (FOR DETOX USE ONLY) PO ONE (15:00)
[2022-02-17] MEDS ORDERED: THIAMINE HCL 100 MG TABLET (FP) PO SCH (22:00)
[2022-02-17] MEDS ORDERED: MELATONIN 5 MG TABLETS PO SCH (22:00)
[2022-02-18 06:00] VITALS: RESP 18
[2022-02-18 09:16] VITALS: BP 121/62; PULSE 61; TEMP 97.8
[2022-02-18] MEDS ORDERED: PRENATAL VITAMINS W/ FOLIC ACID TABLET (FP) PO SCH (10:00)
[2022-02-18 12:21] LABS: ALBUMIN 3.1 g/dl (3.4-5.0); CALCIUM 8.1 mg/dL (8.5-10.1)
[2022-02-18 12:22] LABS: BLOOD UREA NITROGEN 14.4 mg/dL (7-18)
[2022-02-18 12:24] LABS: HEMATOCRIT 37.2 % (35.4-49); HEMOGLOBIN 12.5 GM/dL (11.7-16.9); MCH 28.4 pg (25.7-33.7); MCHC 33.6 g/dl (32.0-35.9); MEAN CELL VOLUME 84.5 fl (80-96); MEAN PLT VOLUME 7.6 fl (7.5-11.1); PLATELET COUNT 304 10^3/uL (134-434); RBC 4.41 M/mm3 (4.00-5.60); RDW 15.1 % (11.9-15.9); WHITE BLOOD COUNT 5.1 K/mm3 (4.0-10.0)
[2022-02-18 12:25] LABS: CREATININE 0.7 mg/dL (0.55-1.3)
[2022-02-18 12:26] LABS: BILIRUBIN,TOTAL 0.6 mg/dL (0.2-1); TOT PROT 6.3 g/dl (6.4-8.2)
[2022-02-19] MEDS ORDERED: methaDONE HCL 10 MG TABLET (FOR DETOX USE ONLY) PO ONE (10:00)
[2022-02-21] MEDS ORDERED: methaDONE HCL 10 MG TABLET (FOR DETOX USE ONLY) PO ONE (10:00)
== END 2022-02-18 09:15 | disposition left against medical advice (07) | DRG 770 ==
LOC: YASAS 10:57 → Y6N 12:16
PROVIDERS: ADMIT Allergy & Immunology; ATTEND Surgery
PROC: HZ2ZZZZ Detoxification Services for Substance Abuse Treatment (ICD-10-PCS; principal; 2022-02-17)
DX: F11.23 Opioid dependence with withdrawal (principal); F14.20 Cocaine dependence, uncomplicated; F15.20 Other stimulant dependence, uncomplicated; F17.210 Nicotine dependence, cigarettes, uncomplicated; R76.8 Other specified abnormal immunological findings in serum
CPT/HCPCS: 36415; 80053; 85027; 86593; 86780; C9803-CS; U0003; U0005

== ENCOUNTER 2022-05-07 11:48 | Inpatient (IN) | payer OTHER ==
[2022-05-07 12:47] VITALS: BMI 25.0
[2022-05-07] MEDS ORDERED: cloNIDine HCL 0.1 MG TABLET PO PRN (13:09)
[2022-05-07] MEDS ORDERED: IBUPROFEN 600 MG TABLET (FP) PO PRN (13:09)
[2022-05-07] MEDS ORDERED: MAGNESIUM HYDROX 2400MG/30ML ORAL SUSPENSION 30 ML CUP PO PRN (13:09)
[2022-05-07] MEDS ORDERED: ACETAMINOPHEN 325 MG TABLET (FP) PO PRN ×2 (13:09)
[2022-05-07] MEDS ORDERED: POLYETHYLENE GLYCOL (HEALTHYLAX) 3350 17 GM PACKET PO PRN (13:09)
[2022-05-07] MEDS ORDERED: BENZOCAINE/MENTHOL (CHLORASEPTIC ) LOZENGE MM PRN (13:09)
[2022-05-07] MEDS ORDERED: LOPERAMIDE HCL 2 MG CAPSULE PO PRN (13:09)
[2022-05-07] MEDS ORDERED: BISMUTH SUBSALICYLATE 524 MG/30 ML PO PRN (13:09)
[2022-05-07] MEDS ORDERED: METHOCARBAMOL 500 MG TABLET PO PRN (13:09)
[2022-05-07] MEDS ORDERED: ONDANSETRON *ODT* 4 MG TABLET SL PRN (13:09)
[2022-05-07] MEDS ORDERED: DICYCLOMINE HCL 10 MG CAPSULE PO PRN (13:09)
[2022-05-07] MEDS ORDERED: NALOXONE HCL (KLOXXADO) 8 MG SPRAY NS PRN (13:09)
[2022-05-07] MEDS ORDERED: MAG HYDROX/AL HYDROX/SIMETH 30 ML UNIT-DOSE CUP PO PRN (13:09)
[2022-05-07] MEDS ORDERED: hydrOXYzine PAMOATE 25 MG CAPSULE (FP) PO PRN (13:09)
[2022-05-07] MEDS ORDERED: IBUPROFEN 400 MG TABLET (FP) PO PRN (13:09)
[2022-05-07] MEDS ORDERED: NICOTINE 10 MG CARTRIDGE (INHALER) IH PRN (13:09)
[2022-05-07] MEDS: PRENATAL VITAMINS W/ FOLIC ACID TABLET (FP) PO SCH (14:02)
[2022-05-07] MEDS ORDERED: methaDONE HCL 10 MG TABLET (FOR DETOX USE ONLY) PO ONE (17:00)
[2022-05-07] MEDS: THIAMINE HCL 100 MG TABLET (FP) PO SCH (22:30)
[2022-05-07] MEDS: MELATONIN 5 MG TABLETS PO SCH (22:30)
[2022-05-08] MEDS: PRENATAL VITAMINS W/ FOLIC ACID TABLET (FP) PO SCH (10:11)
[2022-05-08 10:22] LABS: HEMATOCRIT 36.6 % (35.4-49); HEMOGLOBIN 12.2 GM/dL (11.7-16.9); MCH 27.6 pg (25.7-33.7); MCHC 33.3 g/dl (32.0-35.9); MEAN CELL VOLUME 82.8 fl (80-96); MEAN PLT VOLUME 7.6 fl (7.5-11.1); PLATELET COUNT 324 10^3/uL (134-434); RBC 4.42 M/mm3 (4.00-5.60); RDW 14.5 % (11.9-15.9)
[2022-05-08 10:55] LABS: BLOOD UREA NITROGEN 11.6 mg/dL (7-18); CALCIUM 8.4 mg/dL (8.5-10.1)
[2022-05-08 10:56] LABS: ALBUMIN 2.9 g/dl (3.4-5.0)
[2022-05-08 10:58] LABS: CREATININE 0.6 mg/dL (0.55-1.3)
[2022-05-08 10:59] LABS: BILIRUBIN,TOTAL 0.4 mg/dL (0.2-1); TOT PROT 6.3 g/dl (6.4-8.2)
[2022-05-08] MEDS: MELATONIN 5 MG TABLETS PO SCH ×2 (22:24→23:55)
[2022-05-08] MEDS: THIAMINE HCL 100 MG TABLET (FP) PO SCH (22:24)
[2022-05-09 09:31] VITALS: BP 121/66; PULSE 65; RESP 18; TEMP 97.7
[2022-05-09] MEDS ORDERED: methaDONE HCL 10 MG TABLET (FOR DETOX USE ONLY) PO ONE (10:00)
[2022-05-09] MEDS: PRENATAL VITAMINS W/ FOLIC ACID TABLET (FP) PO SCH (10:59)
[2022-05-11] MEDS ORDERED: methaDONE HCL 10 MG TABLET (FOR DETOX USE ONLY) PO ONE (10:00)
== END 2022-05-09 10:17 | disposition left against medical advice (07) | DRG 770 ==
LOC: YASAS 11:48 → Y6N 13:51
PROVIDERS: ADMIT Allergy & Immunology; ATTEND Surgery
PROC: HZ2ZZZZ Detoxification Services for Substance Abuse Treatment (ICD-10-PCS; principal; 2022-05-07)
DX: F11.23 Opioid dependence with withdrawal (principal); F14.20 Cocaine dependence, uncomplicated; F15.20 Other stimulant dependence, uncomplicated; F17.210 Nicotine dependence, cigarettes, uncomplicated; R76.8 Other specified abnormal immunological findings in serum; Z86.19 Personal history of other infectious and parasitic diseases
CPT/HCPCS: 36415; 80053; 85027; 86593; 86780; 87811; C9803-CS; U0003; U0005